=== PATIENT | male | born 1950 | race Hispanic/Latino ===

== ENCOUNTER 2025-03-10 11:21 | Emergency (ER) | payer OTHER ==
[~2025-03-10] VITALS: Ht 170.2 cm; Wt 86.2 kg
[2025-03-10 11:33] VITALS: PULSE 70; RESP 16; TEMP 98.3; O2SAT 100
[2025-03-10] MEDS ORDERED: TRAMADOL HCL 50 MG TAB PO ONE (11:45)
[2025-03-10] MEDS ORDERED: ULTRAM 50MG50 MG PO (13:09)
== END 2025-03-10 13:45 | disposition home or self-care (01) ==
LOC: ER 11:28
DX: M25.512 Pain in left shoulder (principal); S42.212A Unspecified displaced fracture of surgical neck of left humerus, initial encounter for closed fracture; W01.0XXA Fall on same level from slipping, tripping and stumbling without subsequent striking against object, initial encounter; Y93.01 Activity, walking, marching and hiking; Y92.89 Other specified places as the place of occurrence of the external cause; I10 Essential (primary) hypertension; Z87.442 Personal history of urinary calculi
CPT/HCPCS: 99283